=== PATIENT | male | born 1940 | race Caucasian/White ===

== ENCOUNTER → 2017-08-07 | Outpatient (CLI) | payer MEDICARE, BC ==
[~2017-08-07] MED LIST: ASPIR-LOW81 MG PO; ASPIRIN81 M1 PO; ASPIRIN81 M2 PO; CILOSTAZOL100 MG; DIGITEK250 MC2 PO; DIGOXIN250 MCG PO; DOCUSATE SODIU100 MG PO; DULERA 200 MCG/13 GM IH; FEROSUL325 MG PO; FISH OIL 1,0001 EAC7 PO; Feosol PO; HYDROCODON-ACE1 EAC9 PO; Habitrol,Nicoderm CQ TD; LATANOPROST2.5 ML BOTH EYES; LISINOPRIL2.5 MG PO; LOPRESSOR50 MG PO; METOPROLOL TART50 MG PO; NIACIN 500 MG1 EACH PO; NIACIN500 M1 PO; NIACOR500 MG PO; Niacin PO; OMEPRAZOLE20 MG PO; PANTOPRAZOLE SO40 MG PO; PLETAL100 MG PO; PLETAL50 MG PO; PREDNISONE5 MG PO; PRILOSEC20 MG PO; PROTONIX40 MG PO; Protonix PO; Proventil,Ventolin H IH; QUESTRAN PACKET4 GM PO; SPIRIVA1 INHALATI IH; VENTOLIN HFA18 GM IH; VITAMIN B122500 MCG PO; WELCHOL625 MG; WELCHOL625 MG PO; XALATAN2.5 ML BOTH EYES; Xalatan 0.005% Ophth BOTH EYES; ZITHROMAX Z-PA250 MG PO
== END | disposition home or self-care (01) ==
LOC: CDC 10:57
DX: Z01.810 Encounter for preprocedural cardiovascular examination (principal)
CPT/HCPCS: 93000